=== PATIENT | female | born 1950 | race Caucasian/White ===

== ENCOUNTER 2020-06-20 16:28 | Outpatient (CLI) | payer MEDICARE, SELFPAY ==
--- NOTE | ~2020-06-20 | XR_ITS ---
XR lumbar spine 2-3V 06/20/2020 17:16 Indication: Low back pain Procedure: 3 views lumbar spine Comparison: No prior studies for comparison. Findings: There is mild levocurvature of the lumbar spine. There is disc narrowing at all lumbar leve ls. There is grade 1 degenerative spondylolisthesis at L4-5 and L5-S1. Levoscoliosis. There are mouna cystectomy clips in the right upper abdomen. There is right hip arthroplasty. Impression: 1: Moderate-severe lumbar spondylosis. Reviewed, dictated and finalized at location A. [employer] CHAIR Impression: 1: Moderate-severe lumbar spondylosis.
--- NOTE | ~2020-06-20 | XR_ITS ---
EXAMINATION: XR hip BI wo pelvis EXAM DATE: 06/20/2020 17:16 INDICATION: Bilateral hip pain, left side worse. TECHNIQUE: Each hip imaged independently (separate right and also left hip) crosstable lateral and ' frog-leg' and frontal projections for interpretation. There is no prior study for comparison. FINDINGS: There is right hip replacement, hardware in expected position. There is moderate left hip p rimary osteoarthritis. There are no acute fractures or dislocations identified. There is no subcutan eous gas. The soft tissue is unremarkable. IMPRESSION: 1. Moderate left hip osteoarthritis. 2. Intact right hip arthroplasty. Reviewed, dictated and finalized at location A. ESMITH
--- NOTE | ~2020-06-20 | XR_ITS ---
XR knee RT min 4V, XR knee LT min 4V 06/20/2020 17:17 Indication: Bilateral knee pain Procedure: 4 views each knee Comparison: No prior studies for comparison. Findings: Osteopenia. No acute fracture, subluxation or dislocation. No significant joint effusion. N o radiopaque foreign bodies. No joint space narrowing. Impression: 1: No acute bone or joint abnormality. Reviewed, dictated and finalized at location A. [employer] Impression: 1: No acute bone or joint abnormality. Impression: 1: No acute bone or joint abnormality.
== END 2020-06-20 16:29 | disposition home or self-care (01) ==
PROVIDERS: PCP Internal Medicine; Visit Provider Psychiatry & Neurology Neurology
DX: M54.5 Low back pain (principal); M25.559 Pain in unspecified hip; M25.569 Pain in unspecified knee; M16.12 Unilateral primary osteoarthritis, left hip; Z96.641 Presence of right artificial hip joint; M47.816 Spondylosis without myelopathy or radiculopathy, lumbar region
CPT/HCPCS: 72100; 73521; 73564